=== PATIENT | female | born 1970 | race Hispanic/Latino ===

== ENCOUNTER 2020-05-27 20:17 | Emergency (ER) | payer SELFPAY ==
[~2020-05-27] VITALS: Ht 147.3 cm; Wt 63.5 kg
[2020-05-27] MEDS ORDERED: CEFTRIAXONE SOD 1 GM VIAL IM ONE (20:30)
[2020-05-27] MEDS ORDERED: TETANUS/DIPHTHERIA TOX ADULT 0.5 ML SYR IM ONE (20:30)
[2020-05-27] MEDS ORDERED: CEFTRIAXONE SOD 1 GM VIAL ONE (20:52)
[2020-05-27] MEDS ORDERED: TETANUS/DIPHTHERIA TOX ADULT 0.5 ML SYR ONE (20:53)
== END 2020-05-27 21:10 | disposition home or self-care (01) ==
LOC: FSED 20:52
DX: L03.114 Cellulitis of left upper limb (principal); W25.XXXA Contact with sharp glass, initial encounter; Y92.008 Other place in unspecified non-institutional (private) residence as the place of occurrence of the external cause; I10 Essential (primary) hypertension; E11.9 Type 2 diabetes mellitus without complications; E78.5 Hyperlipidemia, unspecified
CPT/HCPCS: 90471; 90714; 99282; J0696